=== PATIENT | female | born 1965 | race Caucasian/White ===

== ENCOUNTER 2025-05-25 07:40 | Emergency (ER) | payer OTHER, SELFPAY ==
[2025-05-25] VITALS (7 sets, daily range): BP systolic 108–118; BP diastolic 64–71; BMI 23.5
--- NOTE | 2025-05-25 08:00 | ED.GENMED ---
ED Provider Triage
<Sunil Cesar MD, Resident - Last Filed: 05/25/25 12:04>
-
Patient seen by provider in Triage?: Seen in Triage
History of Present Illness
<Sunil Cesar MD, Resident - Last Filed: 05/25/25 12:04>
General
Chief Complaint: Chest Pain
Source: patient
Exam Limitations: none
Time Seen by Provider: 05/25/25 07:42
History of Present Illness
History of Present Illness:
59-year-old female that presents with sharp, intermittent pain left-sided chest pain below her left collarbone that radiates to the back of the shoulder blade area. According to patient there are no aggravating factors. Pain is relieved on deep
breathing and applying pressure. No fever, chills, nausea, vomiting, abdominal pain, headache, blurry vision, mental status changes. No previous cardiac history. She does have a family history of myocardial infarction in both her mother and
father. No history of any hypertension or diabetes. Only medication she takes are is Lipitor for hyperlipidemia and spironolactone. No smoking, occasional alcohol use, no drugs, no stimulants. She does have some emotional stress that she was
recently quit her job and her sleep is affected.
Past History
<Sunil Cesar MD, Resident - Last Filed: 05/25/25 12:04>
Past History
ED Past Medical History: None
ED Past Surgical History: None
Social History
Tobacco: Non-smoker
Alcohol: Occasional
Drug: None
Personal:
Living: with family
Employment: Not employed
Review of Systems
<Sunil Cesar MD, Resident - Last Filed: 05/25/25 12:04>
Review of Systems
Allergies reviewed?: Yes
All Other Systems: ROS reviewed and negative except as documented in HPI and ROS
Phy Exam
<Sunil Cesar MD, Resident - Last Filed: 05/25/25 12:04>
General Physical Exam
General Presentation: well appearing
General Skin: warm
General Habitus: normal
General Mental: alert
Cardiovascular Exam
Cardiovascular Exam: regular rate/rhythm, no edema, no gallop, no JVD, no murmur and normal peripheral pulses
Pulmonary Exam
Pulmonary Exam: lungs clear and no respiratory distress
Gastrointestinal Exam
Gastrointestinal Exam: normal bowel sounds and non tender
Neurological Exam
Neurological Exam: alert and oriented x3
Musculoskeletal Exam
Musculoskeletal Exam: full ROM
Skin Exam
Skin Exam: normal color, warm/dry and no rash
Scores
<Sunil Cesar MD, Resident - Last Filed: 05/25/25 12:04>
Heart Score for Chest Pain Patients
Heart Score for Chest Pain Patients: 2
Heart Score Risk: 2.5% MACE over next 6 weeks
<Ekaterina Diaz, DO - Last Filed: 05/25/25 11:55>
Heart Score for Chest Pain Patients
STEMI patient?: No
History: Slightly or Non-Suspicious
ECG: Normal
Age: >45 - <65 years
Risk Factors: 1 or 2 Risk Factors
Troponin: </= Normal Limit
Heart Score for Chest Pain Patients: 2
Heart Score Risk: 2.5% MACE over next 6 weeks
Course
<Sunil Cesar MD, Resident - Last Filed: 05/25/25 12:04>
Orders/Labs/Results
Orders:
Orders
05/25/25 07:47
EKG [Electrocardiogram (*1)] Urgent
Reason for Study: Chest Pain
EKG- Treatment ONCE
05/25/25 07:56
CR Chest - 2 Views Urgent
Comment:
Reason For Exam: chest pain
05/25/25 07:59
Complete Blood Count/With Diff Urgent
Comprehensive Metabolic Panel Urgent
NT-proBNP Urgent
Troponin I Q3H
05/25/25 10:28
Electrocardiogram (*1) Urgent
Reason for Study: Chest Pain
EKG- Treatment ONCE
05/25/25 11:14
Troponin I Q3H
Abnormal Lab Results
05/25/25
07:59
WBC 4.5 L 10^3/uL
(4.8-10.8)
Total Bilirubin 1.7 H mg/dl
(0.2-1.3)
05/25/25 07:59
05/25/25 07:59
Vital Signs
Initial and Last Documented VS:
Initial Vital Signs
Pulse Resp BP Pulse Ox
67 15 118/70 99
05/25/25 07:48 05/25/25 07:48 05/25/25 07:48 05/25/25 07:48
Last Documented Vital Signs
Pulse Resp BP Pulse Ox
61 17 115/71 98
05/25/25 10:30 05/25/25 10:30 05/25/25 08:21 05/25/25 10:30
<Ekaterina Diaz, DO - Last Filed: 05/25/25 11:55>
Orders/Labs/Results
Orders:
Orders
05/25/25 07:47
EKG [Electrocardiogram (*1)] Urgent
Reason for Study: Chest Pain
EKG- Treatment ONCE
05/25/25 07:56
CR Chest - 2 Views Urgent
Comment:
Reason For Exam: chest pain
05/25/25 07:59
Complete Blood Count/With Diff Urgent
Comprehensive Metabolic Panel Urgent
NT-proBNP Urgent
Troponin I Q3H
05/25/25 10:28
Electrocardiogram (*1) Urgent
Reason for Study: Chest Pain
EKG- Treatment ONCE
05/25/25 11:14
Troponin I Q3H
Abnormal Lab Results
05/25/25
07:59
WBC 4.5 L 10^3/uL
(4.8-10.8)
Total Bilirubin 1.7 H mg/dl
(0.2-1.3)
05/25/25 07:59
05/25/25 07:59
Vital Signs
Initial and Last Documented VS:
Initial Vital Signs
Pulse Resp BP Pulse Ox
67 15 118/70 99
05/25/25 07:48 05/25/25 07:48 05/25/25 07:48 05/25/25 07:48
Last Documented Vital Signs
Pulse Resp BP Pulse Ox
61 17 115/71 98
05/25/25 10:30 05/25/25 10:30 05/25/25 08:21 05/25/25 10:30
<Sunil Cesar MD, Resident - Last Filed: 05/25/25 12:04>
MDM/Problems Addressed
Differential Diagnosis Includes:
Acute coronary syndrome, myocardial infarction, pericarditis, GERD,Costochondritis
MDM/Problems Addressed:
CBC- unremarkable
CMP- total bilirubin 1.7
EKG- normal sinus rhythm x 2
trops normal x2
Advised patient to f/u with PCP within 5 days.
<Sunil Cesar MD, Resident - Last Filed: 05/25/25 12:04>
*Pulse Oximetry
SaO2: 100
Oxygen Mode of Delivery: Room air
Patient hypoxic: no
*Critical Care Note
Total Time (30-74mins, 75-104mins- exclusive of procedures): Not Applicable
<Ekaterina Diaz, DO - Last Filed: 05/25/25 11:55>
*EKG
Interpreted by ED Provider?: Yes
EKG Intrepretation Date: 05/25/25
EKG Intrepretation Time: 08:19
Interpretation: normal
Comparison EKG: no comparison EKG present
Heart Rate: 66
Rate: normal
Rhythm: sinus
Mentmore: normal axis
Interval: normal interval
QRS Pattern: normal QRS
Ischemia: no ischemia
ED Attending Note
<Sunil Cesar MD, Resident - Last Filed: 05/25/25 12:04>
-
Portions of this chart may have been created with voice recognition software.� Occasional wrong word or��sound alike� substitutions may have occurred due to the inherent limitations of voice recognition software.
<Ekaterina Diaz DO - Last Filed: 05/25/25 11:55>
ED Attending Note
Patient seen and examined by attending physician: Yes
I performed the substantive portion of visit, reviewed & personally made and approve the management plan that is documented in note by myself or MARYBEL.: Yes
I performed a history and physical exam of patient and discussed management with resident, I reviewed resident's note and agree with documented findings and plan of care.: Yes
ED Attending Note:
59-year-old female with history of high cholesterol presenting to the emergency department for chest pain. Patient reports that she woke up around 530 with sharp left-sided chest pain with radiation to her shoulder blade. Symptoms lasted about 15
minutes, and then returned. She is currently pain-free. Denies known personal cardiac history, does note some family history. Denies any fever. Denies any cough. Does note some lightheadedness. Has history of panic attacks in the past, however
feels that this different. Does note that she has seen a marketing admin in the past, however several years ago, and at that time had a normal stress test. Vital signs on arrival are normal.
On exam patient is resting comfortably, no acute distress or discomfort. Unremarkable cardiac and pulmonary exam. EKG obtained upon patient's arrival, nonischemic, reassuring. Lower suspicion at this time for ACS. Will plan for laboratory
analysis including troponin, chest x-ray imaging. Without present concern for PE, no respiratory symptoms, no PE risk factors. Without concern for infection, afebrile, nontoxic without infectious symptoms.
11:50 - Patient's labs are unremarkable including negative troponin x 2. Chest x-ray without acute cardiopulmonary disease. EKG is unchanged. At this time again low suspicion for ACS, low risk by heart score. Feel stable for discharge with
outpatient follow-up. Return precautions discussed and patient verbalized understanding
Discharge Plan
Departure
Patient Disposition: Home (Routine Discharge)
Date of Disposition: 05/25/25
Time of Disposition: 11:54
Patient with high blood pressure during this ER visit?: No
Condition: Good
Discharge Problem:
Chest pain
Instructions: Chest pain (DC)
Referrals:
Sadiq Rodriguez MD [Active, Cardiology]
Activity Restrictions/Additional Instructions:
You were seen in the emergency department for chest pain
You were found to have reassuring laboratory analysis, vital signs, EKG, chest x-ray imaging. We recommend that you follow-up with a marketing admin.
Please follow-up closely with your primary care physician.
Return to the emergency department for any worsening of your symptoms, or any development of chest pain, difficulty breathing, abdominal pain with persistent vomiting and inability to tolerate food or liquid by mouth (concern for dehydration),
weakness, headache or confusion, fever greater than 100.4, or any additional symptoms that are concerning to you.
Thank you for choosing [facility].
Interventions
Interventions:
*Risk Screen - Suicide Last Done: 05/25/25 08:19
*General Assessment Last Done: 05/25/25 08:17
*Neglect/Abuse Screening Last Done: 05/25/25 08:19
*ED- Fall Risk Assessment Last Done: 05/25/25 08:17
*ED COVID-19 Vaccine History Last Done: 05/25/25 08:17
*ED Influenza Vaccine History Last Done: 05/25/25 08:17
ED- Cardiac Assessment Last Done: 05/25/25 08:05
Discharge Date and Time
Print Language: [id number]
[2025-05-25 08:11] LABS: Hematocrit 40.0 % (37.0-47.0); Hemoglobin 13.2 g/dL (12.0-16.0); Mean Corp Hgb Conc. 33.0 g/dL (33.0-37.0); Mean Corpuscular Volume 92.8 fL (81.0-99.0); Nucleated Red Blood Cells % 0 %; Platelet Count 219 10^3/uL (130-400); Red Cell Dist. Width 13.0 % (11.5-14.5)
[2025-05-25 08:26] LABS: ALT (SGPT) 28 U/L (0-35); AST (SGOT) 28 U/L (14-36); Albumin 4.3 g/dl (3.5-5.0); Alkaline Phosphatase 52 U/L (38-126); Blood Urea Nitrogen 16 mg/dl (7-17); Calcium 9.0 mg/dl (8.4-10.2); Carbon Dioxide 29 mmol/L (22-30); Chloride 106 mmol/L (98-107); Estimated Creatinine Clearance 74 ml/min; Glucose 83 mg/dl (70-99); Potassium 4.0 mmol/L (3.5-5.1); Sodium 139 mmol/L (135-145); Total Protein 6.6 g/dl (6.3-8.2); eGFR > 60.00
[2025-05-25 08:37] LABS: Troponin I < 0.012 ng/ml
[2025-05-25 11:49] LABS: Troponin I < 0.012 ng/ml
== END 2025-05-25 12:22 | disposition home or self-care (01) ==
LOC: EMR 07:40
PROVIDERS: EMERGENCY PHYSICIAN Student in an Organized Health Care Education/Training Program
DX: R07.89 Other chest pain (principal); E78.5 Hyperlipidemia, unspecified; Z79.899 Other long term (current) drug therapy
CPT/HCPCS: 99285; 71046; 80053; 83880; 84484; 85025; 93005